=== PATIENT | male | born 1970 ===

== ENCOUNTER 2018-04-11 09:13 | Outpatient (CLI) | payer OTHER | END 2018-04-11 11:13 | disposition home or self-care (01) | LOC: ECT 09:13 | DX: F33.2 Major depressive disorder, recurrent severe without psychotic features (principal); Z87.442 Personal history of urinary calculi ==

== ENCOUNTER 2018-05-03 05:16 | Outpatient (RCR) | payer OTHER ==
[~2018-05-03] VITALS: Ht 182.9 cm; Wt 87.1 kg
== END 2018-05-21 | disposition home or self-care (01) ==
LOC: ECT 05:16
DX: Z53.8 Procedure and treatment not carried out for other reasons (principal)